=== PATIENT | male | born 1935 | race Caucasian/White ===

== ENCOUNTER 2021-11-07 05:56 | Emergency (ER) | payer MEDICARE, BC | END 2021-11-07 07:40 | disposition home or self-care (01) | LOC: CSHERS 05:56 | DX: J06.9 Acute upper respiratory infection, unspecified (principal); I48.91 Unspecified atrial fibrillation | CPT/HCPCS: 71046 ==

== ENCOUNTER → 2023-04-12 | Day surgery (SDC) | payer MEDICARE, BC ==
[~2023-04-12] MED LIST: Ketamine 50 MG/ML (10ML VIAL) ONE; Lidocaine 1% (PF) 30 ML VIAL ONE; PROPOFOL 200 MG/20 ML VIAL ONE
[2023-04-12 11:13] VITALS: BP 122/58; TEMP 98.2
== END ==
LOC: CSHSDC 09:57
PROVIDERS: ATTEND Specialist
DX: I34.1 Nonrheumatic mitral (valve) prolapse (principal); E78.2 Mixed hyperlipidemia; I48.0 Paroxysmal atrial fibrillation; I11.0 Hypertensive heart disease with heart failure; I50.32 Chronic diastolic (congestive) heart failure; I25.10 Atherosclerotic heart disease of native coronary artery without angina pectoris; I34.0 Nonrheumatic mitral (valve) insufficiency; G47.00 Insomnia, unspecified; K21.00 Gastro-esophageal reflux disease with esophagitis, without bleeding; N40.0 Benign prostatic hyperplasia without lower urinary tract symptoms; Z79.899 Other long term (current) drug therapy
CPT/HCPCS: 93312; J2001; J2704